=== PATIENT | male | born 1960 | race Caucasian/White ===

== ENCOUNTER → 2018-11-10 12:58 | Outpatient (CLI) | payer BC, SELFPAY ==
[2018-11-10 15:23] LABS: Free T3, Triiodothyronine Free 3.87 pg/mL (2.77-5.27); Free T4, Direct Thyroxine 0.89 ng/dL (0.78-2.19)
[2018-11-10 15:37] LABS: Thyroid Stimulating Hormone 1.76 uIU/mL (0.47-4.68)
[2018-11-13 16:19] LABS: Thyroid Peroxidase Antibodies 1 IU/mL (< 9)
== END ==
PROVIDERS: PCP Student in an Organized Health Care Education/Training Program; Visit Provider Family Medicine
DX: R53.83 Other fatigue (principal); I10 Essential (primary) hypertension; Z83.49 Family history of other endocrine, nutritional and metabolic diseases; Z80.8 Family history of malignant neoplasm of other organs or systems
CPT/HCPCS: 36415; 84439; 84443; 84481; 86376

== ENCOUNTER → 2020-03-25 10:22 | Outpatient (CLI) | payer BC, SELFPAY ==
[2020-03-26 07:58] LABS: COVID19 Sendout Not Detected (Not Detect)
== END ==
PROVIDERS: PCP Student in an Organized Health Care Education/Training Program; Visit Provider Physician Assistant
DX: Z01.818 Encounter for other preprocedural examination (principal)
CPT/HCPCS: 87635

== ENCOUNTER 2020-03-28 07:35 | Day surgery (SDC) | payer BC, SELFPAY ==
--- NOTE | 2020-03-28 | PATH_ITS ---
[facility] Accession Number: [id number] . 01 Material submitted: . rectum - RECTUM POLYP . 01 Clinical history: . COLONOSCOPY . 02 Diagnosis: Rectum, Polyp, Biopsy: Hyperplastic polyp. I 03/29/2020 1414 Local . 02 Electronically signed: . Reyna Casanova MD, Pathologist NPI- [id number] . 01 Gross description: . RECTUM POLYP: Received in formalin is 1 fragment(s) of angelo, soft tissue measuring 0.3 x 0.3 x 0.3 cm submitted entirely in 1 cassette(s) /JORGE 03/29/2020 0150 Local . 02 Pathologist provided ICD-10: K62.1 . 02 CPT . 506299 Performed at: 01 [facility] [address] [id number] MD Sav Silva MD Phone: [phone] Performed at: 02 [facility] [place] [address] [place], [place] [id number] MD Reyna Casanova MD Phone: [phone]
[2020-03-28 08:04] VITALS: BP 118/72; PULSE 59; RESP 16; TEMP 36.6; O2SAT 99; BMI 27.8
--- NOTE | 2020-03-28 08:17 | PM.HP.1 ---
History of Present Illness History of Present Illness Date Patient Seen: 03/28/20 Time Patient Seen: 08:17 Chief complaint: [id number] COLONOSCOPY Narrative: Family history of colon polyps in mother at age 60. Last colonoscopy 10 years ago or more Patient History Family & Social History Social History: household members spouse Tobacco & Substance use: Smoking Status Never smoker alcohol intake current alcohol intake frequency 0-2 drinks per day Substance Use Type does not use Meds Home Medications and Allergies Home Medications Medication Instructions Recorded Confirmed Type hydrochlorothiazide 25 mg PO DAILY 03/28/20 03/28/20 History lisinopril 20 mg PO DAILY 03/28/20 03/28/20 History Allergies Allergy/AdvReac Type Severity Reaction Status Date / Time No Known Drug Allergies Allergy Verified 03/28/20 07:58 Exam Vital Signs (past 8 hours): - 03/28/20 08:04 Temperature 97.9 F Pulse Rate 59 L Respiratory Rate 16 Blood Pressure 118/72 Pulse Oximetry 99 Oxygen Delivery Method Room Air Narrative Exam Narrative: Oropharynx free of lesions Chest clear to auscultation percussion Cardiac exam reveals no S3 or murmur Assessment & Plan Assessment & Plan narrative: Family history of colon polyps need for follow-up screening colonoscopy. Risks, benefits, alternatives have been explained. Further recommendations will follow the results of the study.
--- NOTE | 2020-03-28 08:18 | PM.OP.ENDO ---
Operative Date/Time/Diagnoses Date of procedure: 03/28/20 Time of procedure: 08:18 Pre-op diagnosis: See indication and findings Procedure & Clinicians Study performed: Colonoscopy Same procedure as scheduled: Yes Indications: Family history of colon polyps Surgeon: Michaela Zavala Procedure Notes Procedure in detail: After informed consent was obtained the patient was placed in the left lateral decubitus position. The video colonoscope was introduced the rectum and slowly advanced cecum. On slow withdrawal mucosa was carefully examined. The scope was removed. Preparation was good. The patient tolerated the procedure well. Blood loss none Complications none Sedation Total sedation time 16 minutes Fentanyl 100 mg Versed 5 mg IV titration Findings 1. A 6 mm polyp in the rectum Jumbo biopsy removed completely 2. Extensive sigmoid diverticulosis 3. Otherwise negative colonoscopy to cecum We will be in touch regarding his pathology but he will need follow-up colonoscopy in 5 years given the family history of colon polyps.
[2020-03-28] MEDS: SODIUM CHLORIDE 0.9% 1,000 ML 84 ML IV (08:30)
[2020-03-28] MEDS: MIDAZOLAM 5 MG/5 ML VIAL IV ×5 (08:32→08:38)
[2020-03-28] MEDS: fentaNYL 250 MCG/5 ML INJ IV (08:32)
[2020-03-28 08:54] VITALS: BP 111/63; PULSE 67; RESP 17; TEMP 36.5; O2SAT 93
[2020-03-28 08:59] VITALS: BP 109/62; PULSE 77; RESP 13; TEMP 37.2; O2SAT 96
[2020-03-28 09:04] VITALS: BP 105/72; PULSE 66; RESP 15; TEMP 36.8; O2SAT 95
[2020-03-28 09:21] VITALS: BP 103/64; PULSE 78; RESP 19; TEMP 36.8; O2SAT 95
== END 2020-03-28 09:25 | disposition home or self-care (01) ==
PROVIDERS: PCP Internal Medicine; Referring Provider Internal Medicine; Visit Provider Internal Medicine Gastroenterology
PROC: 0DJD8ZZ Inspection of Lower Intestinal Tract, Via Natural or Artificial Opening Endoscopic (ICD-10-PCS; CPT 45378; principal; 2020-03-28 08:30)
DX: Z12.11 Encounter for screening for malignant neoplasm of colon (principal); K57.30 Diverticulosis of large intestine without perforation or abscess without bleeding; K62.1 Rectal polyp
CPT/HCPCS: 45380; J2250; J3010

== ENCOUNTER → 2021-01-21 21:46 | Outpatient (ROUT) | payer OTHER, SELFPAY ==
[2021-01-22 08:06] LABS: Aspartate Aminotransferase 32 IU/L (17-59); BUN Creatinine Ratio 20.2 (6-22); Blood Urea Nitrogen 21 mg/dL (9-20); Calcium 9.9 mg/dL (8.4-10.2); Carbon Dioxide 28 mmol/L (22-32); Chloride 101 mmol/L (98-107); Cholesterol 226 mg/dL (140-199); Estimated Glomerular Filt Rate > 60.0 mL/min (>60); Glucose 102 mg/dL (80-110); HDL Cholesterol 49 mg/dL (40-60); HEMOLYSIS < 15 (0-50); LDL Cholesterol Calculated 134 mg/dL (<100); Potassium 3.7 mmol/L (3.4-5.1); Sodium 138 mmol/L (137-145); Triglycerides 216 mg/dL (35-150)
== END ==
PROVIDERS: PCP Internal Medicine; Visit Provider Internal Medicine
DX: I10 Essential (primary) hypertension (principal); E78.2 Mixed hyperlipidemia; Z00.00 Encounter for general adult medical examination without abnormal findings
CPT/HCPCS: 80048; 80061; 84153; 84450

== ENCOUNTER → 2023-07-28 10:04 | Outpatient (CLI) | payer OTHER, SELFPAY ==
[2023-07-28 11:26] LABS: Hemoglobin A1C% w Est Avg Glu 5.8 % (4.0-6.0)
[2023-07-28 11:35] LABS: Alanine Aminotransferase 24 IU/L (<50); Albumin 4.3 g/dL (3.5-5.0); Albumin Globulin Ratio 1.3 (1.0-2.8); Alkaline Phosphatase 58 U/L (38-126); Aspartate Aminotransferase 27 IU/L (17-59); Bilirubin Total 0.7 mg/dL (0.2-1.3); Blood Urea Nitrogen 18 mg/dL (9-20); Calcium 9.7 mg/dL (8.4-10.2); Carbon Dioxide 28 mmol/L (22-32); Chloride 101 mmol/L (98-107); Cholesterol 254 mg/dL (140-199); Estimated Glomerular Filt Rate > 60 mL/min (>60); Globulin 3.2 g/dL (1.7-4.1); Glucose 103 mg/dL (80-110); HDL Cholesterol 48 mg/dL (40-60); HEMOLYSIS < 15 (0-50); LDL Cholesterol Calculated 177 mg/dL (<100); Sodium 137 mmol/L (137-145); Total Protein 7.5 g/dL (6.3-8.2); Triglycerides 147 mg/dL (35-150)
[2023-07-28 11:36] LABS: Potassium 4.4 mmol/L (3.4-5.1)
[2023-07-28 12:57] LABS: HIV 1 & 2 Ab/Ag 4th Gen Combo NEGATIVE (NEGATIVE); Hep C Virus Ab w/Reflex Quant NEGATIVE s/c (NEGATIVE)
== END ==
PROVIDERS: PCP Family Medicine; Referring Provider Family Medicine; Visit Provider Family Medicine
DX: Z12.5 Encounter for screening for malignant neoplasm of prostate (principal); I10 Essential (primary) hypertension; E78.2 Mixed hyperlipidemia; Z11.4 Encounter for screening for human immunodeficiency virus [HIV]; Z11.59 Encounter for screening for other viral diseases
CPT/HCPCS: 36415; 80053; 80061; 83036; 86803; 87389; G0103

== ENCOUNTER → 2024-06-07 12:02 | Outpatient (CLI) | payer OTHER, SELFPAY ==
[2024-06-07 15:19] LABS: Blood Urea Nitrogen 19 mg/dL (9-20); Calcium 9.7 mg/dL (8.4-10.2); Carbon Dioxide 29 mmol/L (22-32); Chloride 97 mmol/L (98-107); Cholesterol 283 mg/dL (140-199); Estimated Glomerular Filt Rate > 60 mL/min (>60); Glucose 114 mg/dL (80-110); HDL Cholesterol 59 mg/dL (40-60); HEMOLYSIS < 15 (0-50); LDL Cholesterol Calculated 195 mg/dL (<100); Potassium 3.5 mmol/L (3.4-5.1); Sodium 133 mmol/L (137-145); Triglycerides 143 mg/dL (35-150)
[2024-06-07 19:57] LABS: Hemoglobin A1C% w Est Avg Glu 5.7 % (4.0-6.0)
== END ==
PROVIDERS: PCP Family Medicine; Referring Provider Family Medicine; Visit Provider Family Medicine
DX: R73.01 Impaired fasting glucose (principal); I10 Essential (primary) hypertension; E78.2 Mixed hyperlipidemia
CPT/HCPCS: 36415; 80048; 80061; 83036

== ENCOUNTER 2024-10-25 10:34 | Day surgery (SDC) | payer OTHER, SELFPAY ==
--- NOTE | 2024-10-25 | PATH_ITS ---
[facility] Accession Number: [id number] No. of containers..01 Tissue . 01 Material submitted: . colon - SIGMOID COLON POLYP X2 . 01 Diagnosis: SIGMOID COLON POLYPS: Tubular adenoma x2. MRV 10/27/2024 1309 Local . 01 Electronically signed: . Conor Castro MD, PhD, Pathologist NPI- [id number] . 01 Gross description: . Received in formalin with two patient identifiers and sigmoid colon polyp x2, are two angelo soft tissue fragments, 0.4-0.6 cm in greatest dimension, submitted in A1. ([id number]) /MRV 10/26/2024 1807 Local . 01 Pathologist provided ICD-10: D12.5 . 01 CPT . 031705 Specimen Comment: A courtesy copy of this report has been sent to [facility] Performed at: [address] [facility] [address], [place], [place] [id number] MD Sav Silva MD Phone: [phone]
[2024-10-25] MEDS: LACTATED RINGERS 1,000 ML 42 ML IV (11:26)
[2024-10-25 11:31] VITALS: BP 134/70; PULSE 58; RESP 16; TEMP 36.5; O2SAT 100
--- NOTE | 2024-10-25 11:59 | PM.HP.IH.1 ---
History of Present Illness History of Present Illness Date Patient Seen: 10/25/24 Time Patient Seen: 11:59 Chief complaint: Screening Colonoscopy Narrative: 64-year-old white male presents with a personal history of polyps, last colonoscopy 7 or 8 years ago. No changes in bowel habits. [facility] Medical History (Updated 10/25/24 @ 11:59 by Alexandre Ornelas MD) Colon cancer screening IFG (impaired fasting glucose) Mumps (~1966) Measles (~1964) Chicken pox (~1964) Hypertension Kidney stone on left side Mixed hyperlipidemia Surgical History Anesthesia History of hernia repair (~2019) Family History Father History of heart disease Mother Colon cancer Social History household members: spouse Smoking Status: Never smoker alcohol intake: current Meds Home Medications and Allergies Home Medications Medication Instructions Recorded Confirmed Type amlodipine 5 mg tablet 5 mg PO DAILY #90 tabs 06/07/24 10/25/24 Rx chlorthalidone 25 mg tablet 25 mg PO DAILY blood pressure #90 06/07/24 10/25/24 Rx tabs lisinopril 20 mg tablet 20 mg PO DAILY high blood pressure 06/07/24 10/25/24 Rx #90 tabs Allergies Allergy/AdvReac Type Severity Reaction Status Date / Time No Known Drug Allergies Allergy Verified 10/25/24 11:29 Review of Systems Review of Systems ROS: Yes All systems reviewed with the patient and are negative except as otherwise documented Exam Vital Signs (past 8 hours): - 10/25/24 11:31 Temperature 97.7 F Pulse Rate 58 L Respiratory Rate 16 Blood Pressure 134/70 Pulse Oximetry 100 Oxygen Delivery Method Room Air Oxygen Delivery Method Room Air Narrative Exam Narrative: Gen: NAD, sitting comfortably in bed, appears well HEENT: Sclera are anicteric, head is normocephalic and atraumatic, trachea is midline. CV: RRR, no JVD Resp: clear to auscultation bilaterally, equal chest wall movement bilaterally Abd: soft, nontender, normoactive bowel sounds Ext: no edema, full range of motion Neuro: Cranial nerves II-XII grossly intact, no focal deficits Skin: No erythema or ecchymosis Assessment & Plan Assessment and plan (1) Colon cancer screening: Status: Acute Assessment & Plan narrative: Patient presents for colonoscopy Risks, benefits, alternatives to colonoscopy explained, including but not limited to bowel perforation or other serious complication requiring surgery at less than 1 in 5000 colonoscopies, abdominal pain, cramping or bleeding and less than 1% of colonoscopies, and the chances that we find a diagnosis that would require further intervention of about 2%. Patient agrees to proceed. Time-Based Coding :: [TOTAL MINUTES] spent with patient and on the chart (including review of chart, obtaining history, exam, reviewing outside data, placing orders, documenting exam and treatment plan, and counseling patient) on [DATE]. [employer] Document charge(s): No
--- NOTE | 2024-10-25 12:21 | PM.OP.COLON ---
Operative Date/Time/Diagnoses Date of procedure: 10/25/24 Time of procedure: 12:21 Pre-op diagnosis: Personal history of polyps Post-op diagnosis: same (Sigmoid polyps x2) Procedure & Clinicians Study performed: Colonoscopy with cold snare polypectomy x2 Same procedure as scheduled: Yes Indications: Personal history of polyps Surgeon: Alexandre Ornelas Procedure Notes SCOAP/Timeout: Performed Procedure in detail: Time-out was performed. Mac was induced. Patient was placed in left lateral decubitus position. The perineum was inspected without any gross abnormality. Lubricated pediatric colonoscope was inserted and advanced to the cecum. The terminal ileum was intubated. The colonoscope was withdrawn slowly inspecting the circumference of the colon. Two small polyps were noted in the sigmoid colon, removed completely with cold snare polypectomy and retrieved. Very small polyps may have been missed, prep quality was adequate. Retroflexed view of the rectum showed small, non prolapsed nonbleeding internal hemorrhoids. The scope was withdrawn the patient was taken to PACU in good condition. Scope withdrawal time: 9 Sedation minutes: 14 Findings: polyp(s) Specimen(s): other (1. Sigmoid polyps x2) Complications: none Post-procedure Recommendations: Colonoscopy in 5 years (Next colonoscopy in 5-7 years) Follow up: as needed Disposition: PACU
[2024-10-25 12:26] VITALS: BP 98/59; PULSE 71; RESP 16; TEMP 36.4; O2SAT 97
[2024-10-25 12:28] VITALS: BP 104/65; PULSE 65; RESP 11; O2SAT 97
[2024-10-25 12:47] VITALS: BP 113/72; PULSE 50; RESP 16; O2SAT 97
== END 2024-10-25 12:50 | disposition home or self-care (01) ==
PROVIDERS: PCP Family Medicine; Referring Provider Surgery; Visit Provider Surgery
PROC: 0DJD8ZZ Inspection of Lower Intestinal Tract, Via Natural or Artificial Opening Endoscopic (ICD-10-PCS; CPT 45378; principal; 2024-10-25 11:45)
DX: Z12.11 Encounter for screening for malignant neoplasm of colon (principal); Z86.0100 Personal history of colon polyps, unspecified; K64.8 Other hemorrhoids; D12.5 Benign neoplasm of sigmoid colon
CPT/HCPCS: 45385; J2704

== ENCOUNTER → 2025-06-06 12:08 | Outpatient (CLI) | payer OTHER, SELFPAY ==
[2025-06-06 13:33] LABS: Hematocrit 46.0 % (41-53); Hemoglobin 16.0 g/dL (13.5-17.5); Mean Corpuscular HGB Conc 34.7 % (30-36); Mean Corpuscular Hemoglobin 31.2 PG (26-34); Mean Corpuscular Volume 89.8 fL (80-100); Platelet Count 231 X10^3/uL (150-400)
[2025-06-06 13:49] LABS: Alanine Aminotransferase 32 IU/L (<50); Albumin 4.8 g/dL (3.5-5.0); Albumin Globulin Ratio 1.6 (1.0-2.8); Alkaline Phosphatase 52 U/L (38-126); Blood Urea Nitrogen 18 mg/dL (9-20); Calcium 10.0 mg/dL (8.4-10.2); Carbon Dioxide 28 mmol/L (22-32); Chloride 100 mmol/L (98-107); Cholesterol 267 mg/dL (140-199); Estimated Glomerular Filt Rate > 60 mL/min (>60); Globulin 3.0 g/dL (1.7-4.1); Glucose 105 mg/dL (70-99); HDL Cholesterol 53 mg/dL (40-60); HEMOLYSIS < 15 (0-50); Potassium 3.7 mmol/L (3.4-5.1); Sodium 137 mmol/L (137-145); Total Protein 7.8 g/dL (6.3-8.2); Triglycerides 184 mg/dL (35-150)
[2025-06-06 14:13] LABS: Hemoglobin A1C% w Est Avg Glu 5.8 % (4.0-6.0)
== END ==
PROVIDERS: PCP Family Medicine; Referring Provider Family Medicine; Visit Provider Family Medicine
DX: Z00.00 Encounter for general adult medical examination without abnormal findings (principal); R73.01 Impaired fasting glucose; I10 Essential (primary) hypertension; Z12.5 Encounter for screening for malignant neoplasm of prostate; E78.2 Mixed hyperlipidemia
CPT/HCPCS: 36415; 80053; 80061; 83036; 85027; G0103